=== PATIENT | female | born 1985 | race American Indian/Alaskan Native ===

== ENCOUNTER 2017-03-20 14:50 | Emergency (ER) | payer OTHER ==
[2017-03-20 15:35] VITALS: BP 110/72; PULSE 76; RESP 16; TEMP 98.1; O2SAT 97
--- NOTE | 2017-03-20 16:47 | C.PDOC ---
History Of Present Illness A 31 y/o Females c/o having pain to the bilateral calves that extends to the mid thighs for the past 2 weeks. Reports previous hx of PE last year and was treated with Xarelto. Notes he was taken off Xarelto because she does not have PE anymore. Denies chest pain, SOB, leg swelling, trauma, or any other complaints. Time Seen by Provider: 03/20/17 15:25 Chief Complaint (Nursing): Lower Extremity Problem/Injury History Per: Patient History/Exam Limitations: no limitations Onset/Duration Of Symptoms: Days (2 weeks) Current Symptoms Are (Timing): Still Present Severity: Mild Recent travel outside of the [place]: No Additional History Per: Patient Past Medical History Reviewed: Historical Data, Nursing Documentation, Vital Signs Vital Signs: Last Vital Signs Temp 98.1 F 03/20/17 15:31 Pulse 76 03/20/17 15:31 Resp 16 03/20/17 15:31 BP 110/72 03/20/17 15:31 Pulse Ox 97 03/20/17 18:05 - Medical History PMH: Asthma, Kidney Stones, Pulmonary Embolism (11/2015), Chronic Kidney Disease Surgical History: Family History: States: No Known Family Hx - Social History Hx Tobacco Use: Yes Hx Alcohol Use: Yes Hx Substance Use: No - Immunization History Hx Tetanus Toxoid Vaccination: No Hx Influenza Vaccination: No Hx Pneumococcal Vaccination: No Review Of Systems Except As Marked, All Systems Reviewed And Found Negative. Constitutional: Negative for: Other (Trauma) Cardiovascular: Negative for: Chest Pain Respiratory: Negative for: Shortness of Breath Musculoskeletal: Positive for: Leg Pain (Bilateral calves that extends to the mid thighs. No Swelling) Physical Exam - Physical Exam Appears: Non-toxic, No Acute Distress Skin: Warm, Dry Head: Atraumatic, Normacephalic Eye(s): bilateral: Normal Inspection Oral Mucosa: Moist Neck: Normal ROM Chest: Symmetrical, No Tenderness Cardiovascular: Rhythm Regular Respiratory: Normal Breath Sounds Back: Normal Inspection, No CVA Tenderness Extremity: Normal ROM, Calf Tenderness (Mild, bilaterally), Capillary Refill (< 2secs), No Deformity, No Swelling Extremity: Bilateral: Normal Color And Temperature Pulses: Left Dorsalis Pedis: Normal, Right Dorsalis Pedis: Normal Neurological/Psych: Oriented x3, Normal Speech, Normal Cognition, Normal Motor, Normal Sensation Gait: Steady ED Course And Treatment O2 Sat by Pulse Oximetry: 97 (RA) Pulse Ox Interpretation: Normal Medical Decision Making Medical Decision Making: Impression: A 31 y/o F c/o having pain to the bilateral calves that extends to the mid thigh for the past 2 weeks. Plans: * Toradol for pain * Vascular lab Vascular US to rule out DVT. Vascular US came back negative. On re-exam, the patient reports she feels much improved. Lungs are CTA, heart Is RRR, abdomen is soft, non-tender and patient is tolerating Ambulatory in the ED with steady gait. Follow up with the medical doctor within 1-2 days. Return if worsened. Disposition - Disposition Referrals: Ever Queen DPM [[facility]] - Disposition: HOME/ ROUTINE Disposition Time: 16:47 Condition: GOOD Additional Instructions: Follow up with the medical doctor within 1-2 days. Return if worsened. Prescriptions: Naproxen [Naprosyn] 500 mg PO BID #20 tab Instructions: Muscle Cramp (ED) Forms: [employer] [facility] (Vietnamese), Work Excuse - Clinical Impression Clinical Impression: Muscle cramp - Scribe Statement The provider has reviewed the documentation as recorded by the Scribe Stephanie chavis All medical record entries made by the Scribe were at my direction and personally dictated by me. I have reviewed the chart and agree that the record accurately reflects my personal performance of the history, physical exam, medical decision making, and the department course for this patient. I have also personally directed, reviewed, and agree with the discharge instructions and disposition.
--- NOTE | 2017-03-21 09:07 | VASCLAB ---
PROCEDURE: Lower Extremity Venous Duplex Exam. HISTORY: mirza calf pain PRIORS: None. TECHNIQUE: Bilateral common femoral, femoral, popliteal and posterior tibial, peroneal and great saphenous veins were evaluated. Flow was assessed with color Doppler, compressibility, assessment of phasic flow and augmentation response. Report prepared by Wali Styles, ZELDA, RVT FINDINGS: RIGHT: 1. Common Femoral Vein: 1.1. Compressibility - Fully compressible: Thrombus - None : Flow - Phasic: Augmentation -Normal: Reflux - None. 2. Femoral Vein: 2.1. Compressibility - Fully compressible: Thrombus - None : Flow - Phasic: Augmentation -Normal: Reflux - None. 3. Popliteal Vein: 3.1. Compressibility - Fully compressible: Thrombus - None : Flow - Phasic: Augmentation -Normal: Reflux - None. 4. Posterior Tibial Vein: 4.1. Compressibility - Fully compressible: Thrombus - None: Flow - Phasic: Augmentation -Normal: Reflux - None. 5. Peroneal Vein: 5.1. Compressibility - Fully compressible: Thrombus - None: Flow - Phasic: Augmentation -Normal: Reflux - None. 6. Great Saphenous Vein: 6.1. Compressibility - Fully compressible: Thrombus - None: Flow - Phasic: Augmentation - Normal: Reflux - None. LEFT: 1. Common Femoral Vein: 1.1. Compressibility - Fully compressible: Thrombus - None: Flow - Phasic: Augmentation -Normal: Reflux - None. 2. Femoral Vein: 2.1. Compressibility - Fully compressible: Thrombus - None: Flow - Phasic: Augmentation -Normal: Reflux - None. 3. Popliteal Vein: 3.1. Compressibility - Fully compressible: Thrombus - None : Flow - Phasic: Augmentation -Normal: Reflux - None. 4. Posterior Tibial Vein: 4.1. Compressibility - Fully compressible: Thrombus - None: Flow - Phasic: Augmentation -Normal: Reflux - None. 5. Peroneal Vein: 5.1. Compressibility - Fully compressible: Thrombus - None: Flow - Phasic: Augmentation -Normal: Reflux - None. 6. Great Saphenous Vein: 6.1. Compressibility - Fully compressible: Thrombus - None: Flow - Phasic: Augmentation - Normal: Reflux - None. OTHER FINDINGS: Right: None significant. Left: None significant. IMPRESSION: Right: No evidence of deep or superficial vein thrombosis of the right lower extremity. Normal valve function noted of the right side. Left: No evidence of deep or superficial vein thrombosis of the left lower extremity. Normal valve function noted of the left side.
== END 2017-03-20 17:10 | disposition home or self-care (01) ==
LOC: C.ER 14:50
DX: R25.2 Cramp and spasm (principal)
CPT/HCPCS: 93970; 96372; 99283; J1885

== ENCOUNTER 2018-07-15 11:05 | Emergency (ER) | payer OTHER ==
[2018-07-15 11:22] VITALS: BP 111/64; PULSE 68; RESP 18; TEMP 98.1; O2SAT 99
--- NOTE | 2018-07-15 11:43 | C.PDOC ---
History Of Present Illness 32 y/o female presents to the ED complaining of new-onset pain to the upper right back tooth since yesterday. Patient reports hx of prior chip fracture in the area a long time ago and has had no pain since. Denies any new trauma. Denies fever, pain, swelling, or hx of smoking. Time Seen by Provider: 07/15/18 11:35 Chief Complaint (Nursing): Dental Pain History Per: Patient History/Exam Limitations: no limitations Onset/Duration Of Symptoms: Days (x2) Current Symptoms Are (Timing): Still Present Severity: Moderate Past Medical History Reviewed: Historical Data, Nursing Documentation, Vital Signs Vital Signs: Last Vital Signs Temp 98.1 F 07/15/18 11:18 Pulse 68 07/15/18 11:18 Resp 18 07/15/18 11:18 BP 111/64 07/15/18 11:18 Pulse Ox 99 07/15/18 11:18 - Medical History PMH: Asthma, Kidney Stones, Pulmonary Embolism (11/2015), Chronic Kidney Disease Surgical History: Family History: States: Unknown Family Hx - Social History Hx Tobacco Use: Yes Hx Alcohol Use: Yes Hx Substance Use: No - Immunization History Hx Tetanus Toxoid Vaccination: No Hx Influenza Vaccination: No Hx Pneumococcal Vaccination: No Review Of Systems Except As Marked, All Systems Reviewed And Found Negative. Constitutional: Negative for: Fever, Chills ENT: Positive for: Mouth Pain (dental pain, right upper posterior tooth). Negative for: Mouth Swelling, Other (facial swelling) Respiratory: Negative for: Cough, Shortness of Breath Neurological: Negative for: Headache, Dizziness Physical Exam - Physical Exam Appears: Non-toxic, No Acute Distress Skin: Normal Color, Warm, Dry Head: Atraumatic, Normacephalic, Other (No facial swelling) Eye(s): bilateral: Normal Inspection, PERRL, EOMI Oral Mucosa: Moist Teeth: Other (Old chip fracture to the right upper 3rd molar, + localized tenderness) Gingiva: No Swelling, No Abscess Neck: Normal ROM, Supple Chest: Symmetrical Respiratory: No Accessory Muscle Use, Other (NARD) Pulses: Left Radial: Normal, Right Radial: Normal Neurological/Psych: Oriented x3, Normal Speech ED Course And Treatment O2 Sat by Pulse Oximetry: 99 (RA) Pulse Ox Interpretation: Normal Medical Decision Making Medical Decision Making: Impression: Dentalgia Plan: Patient states she has appointment to see a dentist tomorrow. Patient will be discharged home with rx for penicillin and motrin. Advised to follow up with dentist without fail. Disposition Counseled Patient/Family Regarding: Diagnosis, Need For Followup, Rx Given - Disposition Referrals: YOUR,DENTIST [Other] Disposition: HOME/ ROUTINE Disposition Time: 11:44 Condition: GOOD Prescriptions: Ibuprofen [Motrin] 600 mg PO Q6 #30 tab Penicillin VK [Penicillin VK Tab] 2 tab PO BID #28 tab Instructions: Dental Pain (DC) Forms: [facility] [facility] (Slovak), Work Excuse - Clinical Impression Clinical Impression: Dentalgia - Scribe Statement The provider has reviewed the documentation as recorded by the Craig Weinstein Provider Attestation: All medical record entries made by the Craig were at my direction and personally dictated by me. I have reviewed the chart and agree that the record accurately reflects my personal performance of the history, physical exam, medical decision making, and the department course for this patient. I have also personally directed, reviewed, and agree with the discharge instructions and disposition.
== END 2018-07-15 11:58 | disposition home or self-care (01) ==
LOC: C.ER 11:05
DX: K08.89 Other specified disorders of teeth and supporting structures (principal); Z87.891 Personal history of nicotine dependence

== ENCOUNTER 2018-09-24 12:16 | Emergency (ER) | payer OTHER ==
[2018-09-24 12:39] VITALS: BP 130/88; PULSE 99; RESP 18; TEMP 98.3; O2SAT 100
--- NOTE | 2018-09-24 12:48 | C.PDOC ---
History Of Present Illness 33 y/o female presents to the ED for evaluation of accidental right index finger nail injury yesterday. Patient states fake nail accidentally was caught and bent backwards at the mid nail bed. Nail has now repositioned. She denies any trauma to the nailbed. Patient complains of discomfort to the area. Denies any other injury. Time Seen by Provider: 09/24/18 12:36 Chief Complaint (Nursing): Finger,Hand,&Wrist History Per: Patient History/Exam Limitations: no limitations Onset/Duration Of Symptoms: Hrs Current Symptoms Are (Timing): Better Past Medical History Reviewed: Historical Data, Nursing Documentation, Vital Signs Vital Signs: Last Vital Signs Temp 98.3 F 09/24/18 12:27 Pulse 99 H 09/24/18 12:27 Resp 18 09/24/18 12:27 BP 130/88 09/24/18 12:27 Pulse Ox 100 09/24/18 12:27 - Medical History PMH: Asthma, Kidney Stones, Pulmonary Embolism (11/2015), Chronic Kidney Disease Surgical History: Family History: States: Unknown Family Hx - Social History Hx Tobacco Use: Yes Hx Alcohol Use: Yes Hx Substance Use: No - Immunization History Hx Tetanus Toxoid Vaccination: No Hx Influenza Vaccination: No Hx Pneumococcal Vaccination: No Review Of Systems Constitutional: Negative for: Fever, Chills Skin: Positive for: Other (Accidental nail bend @ right index finger, now resolved). Negative for: Rash, Lesions Neurological: Negative for: Weakness, Numbness Physical Exam - Physical Exam Appears: Non-toxic, No Acute Distress Skin: Warm, Dry Head: Atraumatic, Normacephalic Eye(s): bilateral: Normal Inspection Neck: Normal ROM Chest: Symmetrical Respiratory: No Accessory Muscle Use, Other (NARD) Extremity: Normal ROM, No Deformity (to finger), No Swelling, Other (Right finger with +fake nail intact to right 2nd digit, nailbed is WNL, no active bleeding) Pulses: Left Radial: Normal, Right Radial: Normal Neurological/Psych: Oriented x3, Normal Motor, Normal Sensation Gait: Steady ED Course And Treatment O2 Sat by Pulse Oximetry: 100 (RA) Pulse Ox Interpretation: Normal Disposition Counseled Patient/Family Regarding: Diagnosis, Need For Followup - Disposition Referrals: YOUR,PMD [Other] Disposition: HOME/ ROUTINE Disposition Time: 12:49 Condition: IMPROVED Instructions: Nail Avulsion (DC) Forms: [facility] (Welsh), Work Excuse - Clinical Impression Clinical Impression: Nail, injury by - Scribe Statement The provider has reviewed the documentation as recorded by the Anjelibe Toshia Weinstein Provider Attestation: All medical record entries made by the Anjelibe were at my direction and personally dictated by me. I have reviewed the chart and agree that the record accurately reflects my personal performance of the history, physical exam, medical decision making, and the department course for this patient. I have also personally directed, reviewed, and agree with the discharge instructions and disposition. Orthopedic Care Application Of:: Finger Splint
== END 2018-09-24 13:06 | disposition home or self-care (01) ==
LOC: C.ER 12:16
DX: S69.91XA Unspecified injury of right wrist, hand and finger(s), initial encounter (principal); X58.XXXA Exposure to other specified factors, initial encounter